=== PATIENT | female | born 1960 | race Caucasian/White ===

== ENCOUNTER 2017-03-06 09:07 | Emergency (ER) | payer SELFPAY ==
[2017-03-06] MEDS ORDERED: Albuterol/Ipratropium NEB.SOL* Albuterol 2.5 MG/Ipratropium 0.5 MG 3 ML INH ONE (09:27)
[2017-03-06] MEDS ORDERED: predniSONE TAB* 20 MG PO ONE (09:28)
[2017-03-06] MEDS ORDERED: Albuterol 2.5 MG/3 ML NEB.SOL* (0.083%) ONE (09:30)
[2017-03-06 11:10] VITALS: BP 132/58
--- NOTE | 2017-03-06 14:49 | ED ---
Ismael Muro Nilda, scribed for Santi Burrows MD on 03/06/17 at 1024 . Shortness of Breath - HPI Summary HPI Summary: This patient is a 56 year old F presenting to [facility] accompanied by with a chief complaint of SOB after walking up a flight of stairs this morning. The CC is described as dyspne at rest accompanied by coughing, chest tightness and wheezing. Negative for edema. Pain is rated as 0/10 in severity. She notes that symptoms are similar to previous asthma attacks that she has experienced. Sx are aggravated by exertion and weather changes. Sx are normally alleviated by her medications. She is currently on Advair 500 BID and Ventolin as needed. Sx have also been resolved with Prednisone treatment 2 years ago. PMHx of asthma for 50 years and HTN. Pt denies heart problems and seasonal allergies. FHx of CAD. Patient is a smoker and drinks occasionally. - History of Current Complaint Chief Complaint: EDShortnessOfBreath Time Seen by Provider: 03/06/17 09:18 Hx Obtained From: Patient Onset/Duration: Sudden Onset, Still Present Current Severity: None - 0/10 in severity Dyspnea At: Exertion Aggrevating Factors: Movement Alleviating Factors: Bronchodilators Associated Signs & Symptoms: Wheezing, Chest Pain Unrelated to Cough - Chest tightness - Risk Factors Cardiac: Smoking, Hypertension, Family History - Allergy/Home Medications Allergies/Adverse Reactions: Allergies Allergy/AdvReac Type Severity Reaction Status Date / Time No Known Allergies Allergy Verified 03/06/17 09:50 PMH/Surg Hx/FS Hx/Imm Hx Cardiovascular History: Reports: Hx Hypertension Respiratory History: Reports: Hx Asthma - for 50 years Infectious Disease History: No Infectious Disease History: Denies: Traveled Outside the [place] in Last 30 Days - Family History Known Family History: Positive: Cardiac Disease - Social History Alcohol Use: None Substance Use Type: Reports: None Smoking Status (MU): Never Smoked Tobacco Review of Systems Positive: Other - Chest tightness Positive: Shortness Of Breath, Cough, Other - wheezing Negative: Edema All Other Systems Reviewed And Are Negative: Yes Physical Exam - Summary Physical Exam Summary: The patient is well-nourished in no acute distress and in no acute pain. The skin is warm and dry and skin color reflects adequate perfusion. HEENT: ~The head is normocephalic and atraumatic. The pupils are equal and reactive. The conjunctivae are clear and without drainage. ~Nares are patent and without drainage. ~Mouth reveals moist mucous membranes and the throat is without erythema and exudate. ~The external ears are intact. The ear canals are patent and without drainage. The tympanic membranes are intact. Neck is supple with full range of motion and non-tender. There are no carotid bruits. There is no neck vein distension. Respiratory: Chest is non-tender. Breath sounds are decreased iwht occasional wheezing. Cardiovascular: Heart is regular rate and rhythm. ~There is no murmur or rub auscultated. ~~There is no peripheral edema and pulses are symmetrical and equal. Abdomen: The abdomen is obese, soft and non-tender. ~There are normal bowel sounds heard in all four quadrants and there is no organomegaly palpated. Musculoskeletal: There is no back pain noted. ~Extremities are non-tender with full range of motion. Capillary refill of 2 seconds. ~There is no peripheral edema or calf tenderness elicited. There are good pulses distally. Neurological: Patient is alert and oriented to person, place and time. Psychiatric: The patient has an appropriate affect and does not exhibit any anxiety or depression. Triage Information Reviewed: Yes Vital Signs On Initial Exam: Initial Vitals Temp Pulse Resp BP Pulse Ox 97.8 F 89 21 146/78 96 03/06/17 09:14 03/06/17 09:14 03/06/17 09:14 03/06/17 09:14 03/06/17 09:14 Vital Signs Reviewed: Yes - Kiki Coma Scale Coma Scale Total: 15 Diagnostics - Vital Signs Vital Signs Temp Pulse Resp BP Pulse Ox 03/06/17 09:21 97.8 F 89 20 146/78 96 03/06/17 09:14 97.8 F 89 21 146/78 96 - Laboratory Lab Statement: Any lab studies that have been ordered have been reviewed, and results considered in the medical decision making process. Re-Evaluation - Re-Evaluation First Eval Re-Evaluation Time: 10:18 Change: Improved Comment: Pt is doing significantly better. Course/Dx - Course Assessment/Plan: This patient is a 56 year old F presenting to [facility] accompanied by with a chief complaint of SOB after walking up a flight of stairs this morning, described as dyspnea at rest accompanied by coughing, chest tightness and wheezing. Negative for edema. She notes that symptoms are similar to previous asthma attacks that she has experienced. Sx are aggravated by exertion and weather changes. Sx are normally alleviated by her medications. She is currently on Advair 500 BID and Ventolin as needed. Sx have also been resolved with Prednisone treatment 2 years ago. PMHx of asthma for 50 years and HTN. Pt denies heart problems and seasonal allergies. FHx of CAD. Patient is a smoker and drinks occasionally. In the ED course, pt was given Duoneb and Prednisone which improved sx. She will be D/C to home with Dx of acute asthma excerbation with Rx for Prednisone and a follow up with her PCP. She understands and agrees. Elevated BP noted and advised to f/u with PCP. - Diagnoses Differential Diagnosis/HQI/PQRI: Positive: Asthma, Bronchitis, NH, Pneumonia Provider Diagnoses: Asthma with acute exacerbation Discharge - Discharge Plan Condition: Stable Disposition: HOME Prescriptions: predniSONE TAB* [Deltasone TAB*] 60 mg PO DAILY #15 tab Patient Education Materials: Asthma (ED) Referrals: Non Staff,Doctor [Primary Care Provider] - Additional Instructions: Continue with Ventolin inhaler, 2 puffs every 4 hours. Follow up with your primary care in [place]. The documentation as recorded by the Ismael jensen Nilda accurately reflects the service I personally performed and the decisions made by , Santi Burrows MD.
== END 2017-03-06 11:12 | disposition home or self-care (01) ==
LOC: ED 09:07
DX: R07.9 Chest pain, unspecified (principal); R05 Cough; R06.2 Wheezing; R06.02 Shortness of breath; J45.901 Unspecified asthma with (acute) exacerbation
CPT/HCPCS: 93005; 94640; 99282; A9270-GY; J7512